=== PATIENT | female | born 1950 | race Caucasian/White ===

== ENCOUNTER 2017-01-13 19:56 | Emergency (ER) | payer MEDICARE, OTHER ==
--- NOTE | 2017-01-13 22:47 | RAD ---
TWO VIEWS OF THE LEFT HUMERUS 01/13/17 HISTORY: Patient fell off stool onto left shoulder. Injury after a fall. FINDINGS: There is an oblique fracture involving the proximal left humeral diaphysis with very slight apex med ial angulation and separation of the fracture fragments. No additional fracture is seen, and there i s no dislocation. There is osteopenia. Vascular calcifications seen in an ectatic thoracic aorta. IMPRESSION: 1. Slightly and angulated fracture involving the proximal left humeral diaphysis. 2. Osteopenia. POS: [facility]
--- NOTE | 2017-01-13 22:48 | RAD ---
TWO VIEWS OF THE LEFT ELBOW 01/13/17 HISTORY: Injury to left elbow. FINDINGS: True AP projection was not obtained as the elbow is slightly flexed on the AP projection which does limit evaluation. However, no definite fracture is seen, and there is no evidence of a dislocation. There is osteopenia. IMPRESSION: Osteopenia without acute fracture visualized. POS: [facility]
--- NOTE | 2017-01-13 22:53 | RAD ---
THREE VIEWS OF THE LEFT SHOULDER 01/13/2017 HISTORY: Injury after falling off a stool. FINDINGS: There is an oblique and slightly fracture involving the proximal left humeral diaphysis. No additional fracture is seen, and there is no dislocation. There is slight apex medial angulation fracture fragments. Diffuse osteopenia is present. Vascular calcification seen in the thoracic ao rta. IMPRESSION: 1. Obliquely oriented and slightly fracture involving the proximal left humeral diaphysis. 2. Osteopenia. POS: [facility]
== END 2017-01-13 21:05 | disposition home or self-care (01) ==
LOC: NAV ERS 19:56
DX: S42.332A Displaced oblique fracture of shaft of humerus, left arm, initial encounter for closed fracture (principal); S51.012A Laceration without foreign body of left elbow, initial encounter; I10 Essential (primary) hypertension; W08.XXXA Fall from other furniture, initial encounter; Z79.899 Other long term (current) drug therapy; Z79.82 Long term (current) use of aspirin

== ENCOUNTER 2017-05-17 12:25 | Outpatient (CLI) | payer MEDICARE, OTHER ==
[2017-05-17 15:09] LABS: ALT (SGPT) 10 U/L (8-55); AST (SGOT) 22 U/L (5-34); Albumin 3.7 g/dL (3.4-4.8); Alkaline Phosphatase 143 U/L (40-150); Anion Gap 15 mmol/L (10-20); BUN (Urea Nitrogen) 14 mg/dL (9.8-20.1); Bilirubin, Total 0.8 mg/dL (0.2-1.2); Calc. Creatinine Clearance 0 mL/min (70-130); Calcium 9.6 mg/dL (7.8-10.44); Carbon Dioxide 27 mmol/L (23-31); Cardiac Risk 3.4 (Less than 4.5); Chloride 98 mmol/L (98-107); Cholesterol 137 mg/dl (< 200 Desired); Estimated GFR-MDRD 54; Glucose 92 mg/dL (80-115); HDL Cholesterol 40 mg/dL (>60 Neg Risk); LDL Cholesterol, Calculated 74 mg/dL; Potassium 4.3 mmol/L (3.5-5.1); Protein, Total 7.7 g/dL (6.0-8.3); Sodium 136 mmol/L (136-145); Triglycerides 116 mg/dL (Less than 150)
[2017-05-17 20:41] LABS: #Basophils 0.1 thou/uL (0.0-0.2); #Eosinphils 0.2 thou/uL (0.0-0.7); #Lymphocytes 2.5 thou/uL (1.20-3.40); #Monocytes 0.7 thou/uL (0.11-0.59); #Neutrophils 6.9 thou/uL (1.40-6.50); %Basophils 1.1 % (0.0-1.0); %Eosinophils 1.8 % (0.0-10.0); %Lymphocytes 23.7 % (21.0-51.0); %Monocytes 6.3 % (0.0-10.0); %Neutrophils 67.1 % (42.0-75.0); Hemoglobin 15.3 g/dL (12.0-16.0); MDiff Complete? YES; Macrocytosis SLIGHT = 6-15 cells (100X) (0-5/hpf); Mean Corpuscular HGB CONC 32.7 g/dL (32.0-36.0); Mean Corpuscular Hemoglobin 35.7 pg (27.0-31.0); Mean Platelet Volume 6.7 fL (7.4-10.4); PLT Morphology Comment Appears Adequate; Platelet Count 176 thou/uL (130-400); RBC Distribution Width 13.6 % (11.5-14.5); Red Blood Cell (RBC) Count 4.29 mill/uL (4.20-5.40); White Blood Cell (WBC) Count 10.3 thou/uL (4.8-10.8)
== END 2017-05-17 12:26 | disposition home or self-care (01) ==
LOC: NAVSJIPCSP 12:25
PROVIDERS: ATTEND Internal Medicine
DX: I10 Essential (primary) hypertension (principal)
CPT/HCPCS: 36415; 80053; 80061; 84443; 85025

== ENCOUNTER 2017-09-16 13:18 | Emergency (ER) | payer MEDICARE, OTHER ==
[2017-09-16] MEDS ORDERED: methylPREDNISolone Acetate 40 mg/ml Vial ONE (14:28)
[2017-09-16] MEDS ORDERED: cefTRIAXone\\ROCEPHIN 1 GM VIAL ONE (15:02)
[2017-09-16] MEDS ORDERED: Lidocaine 1% 20 ML MDV ONE (15:02)
--- NOTE | 2017-09-16 15:41 | RAD ---
TWO VIEWS CHEST 09/16/17 HISTORY: Cough. PA and lateral views of the chest is obtained. The lungs are well aerated. No evidence of active intr athoracic disease seen. No evidence of effusions, pneumonia, or pneumothorax seen. IMPRESSION: Normal two views chest. POS: [facility]
== END 2017-09-16 15:23 | disposition home or self-care (01) ==
LOC: NAV ERS 13:18
DX: J20.9 Acute bronchitis, unspecified (principal); J06.9 Acute upper respiratory infection, unspecified; I10 Essential (primary) hypertension; J44.9 Chronic obstructive pulmonary disease, unspecified; F17.210 Nicotine dependence, cigarettes, uncomplicated; Z79.899 Other long term (current) drug therapy; Z79.82 Long term (current) use of aspirin
CPT/HCPCS: 71020; 96372; J0696; J1030; J2001

== ENCOUNTER 2018-07-05 13:55 | Outpatient (CLI) | payer MEDICARE | END 2018-07-05 13:56 | disposition home or self-care (01) | LOC: NAV ULT 13:55 | PROVIDERS: ATTEND Internal Medicine | DX: I10 Essential (primary) hypertension (principal); R60.9 Edema, unspecified; I08.3 Combined rheumatic disorders of mitral, aortic and tricuspid valves | CPT/HCPCS: 93306 ==

== ENCOUNTER 2018-10-31 08:37 | Outpatient (CLI) | payer MEDICARE ==
[2018-10-31 09:07] LABS: ALT (SGPT) 13 U/L (8-55); AST (SGOT) 28 U/L (5-34); Albumin 3.8 g/dL (3.4-4.8); Alkaline Phosphatase 131 U/L (40-150); Anion Gap 13 mmol/L (10-20); BUN (Urea Nitrogen) 27 mg/dL (9.8-20.1); Bilirubin, Total 0.5 mg/dL (0.2-1.2); Calc. Creatinine Clearance 0 mL/min (70-130); Calcium 9.8 mg/dL (7.8-10.44); Carbon Dioxide 23 mmol/L (23-31); Chloride 98 mmol/L (98-107); Estimated GFR-MDRD 21; Globulin 3.9 g/dL (2.4-3.5); Glucose 91 mg/dL (80-115); Potassium 4.2 mmol/L (3.5-5.1); Protein, Total 7.7 g/dL (6.0-8.3); Sodium 130 mmol/L (136-145)
--- NOTE | 2018-10-31 10:27 | CT ---
CT OF THE CHEST WITHOUT CONTRAST CT OF THE ABDOMEN AND PELVIS WITHOUT CONTRAST: History: Unexplained recent weight loss. Renal dysfunction. Technique: 1. Multiple contiguous axial images were obtained in a CT of the chest without contrast. Coronal refo rmats were performed. 2. Multiple contiguous axial images were obtained in a CT of the abdomen and pelvis without contrast. PO contrast was administered. Coronal reformats were performed. FINDINGS: CT CHEST: A calcified granuloma is seen in the superior aspect of the right lower lobe. No other pulmonary nodu les are seen. No pneumothorax or pleural effusions are seen. No focal infiltrates are seen. The heart is normal in size. Calcifications are seen in the coronary arteries and aorta. No hilar or mediastinal lymphadenopathy are appreciated on this limited noncontrast examination. The chest wall soft tissues are unremarkable. Degenerative changes are seen in the thoracic spine. CT ABDOMEN/PELVIS: There is a 1.2 cm hypodensity in the left kidney which likely represents a small cyst. The liver, gal lbladder, right kidney, adrenal glands, spleen, and pancreas are unremarkable. No free air, free flui d, or stranding changes are seen in the abdomen or pelvis. There are scattered diverticula in the colon. The reproductive organs are unremarkable. The small bow el is unremarkable. There is air in the urinary bladder. No abdominal or pelvic lymphadenopathy are seen. Degenerative ch anges are seen in the spine. Abdominal wall soft tissues are unremarkable. IMPRESSION: 1. Likely small left renal cyst. 2. Air in the urinary bladder may be from recent instrumentation. Alternatively, this could represent cystitis. Correlate with history of recent instrumentation. 3. No evidence of acute intrathoracic abnormality. 4. Diverticulosis. POS: [facility]
== END 2018-10-31 08:38 | disposition home or self-care (01) ==
LOC: NAV CT 08:37
PROVIDERS: ATTEND Internal Medicine
DX: Z01.812 Encounter for preprocedural laboratory examination (principal); R63.4 Abnormal weight loss; K57.90 Diverticulosis of intestine, part unspecified, without perforation or abscess without bleeding
CPT/HCPCS: 71250; 74177; 80053

== ENCOUNTER 2018-11-27 10:27 | Emergency (ER) | payer MEDICARE ==
[2018-11-27] MEDS ORDERED: Sodium Chloride 0.9% 1,000 ML ONE ×3 (11:21→16:17)
[2018-11-27] MEDS ORDERED: Ondansetron PF 4 MG/2 ML Vial ONE ×3 (11:21→16:17)
[2018-11-27 11:33] LABS: ALT (SGPT) 13 U/L (8-55); AST (SGOT) 36 U/L (5-34); Albumin 4.3 g/dL (3.4-4.8); Alkaline Phosphatase 148 U/L (40-150); Anion Gap 22 mmol/L (10-20); BUN (Urea Nitrogen) 27 mg/dL (9.8-20.1); CK (CPK) 27 U/L (29-168); Calc. Creatinine Clearance 0 mL/min (70-130); Calcium 10.1 mg/dL (7.8-10.44); Carbon Dioxide 17 mmol/L (23-31); Chloride 102 mmol/L (98-107); Estimated GFR-MDRD 22; Globulin 4.4 g/dL (2.4-3.5); Glucose 192 mg/dL (80-115); Lipase 68 U/L (8-78); Potassium 4.2 mmol/L (3.5-5.1); Protein, Total 8.7 g/dL (6.0-8.3); Sodium 137 mmol/L (136-145)
[2018-11-27 11:52] LABS: #Lymphocytes 0.8 thou/uL (1.20-3.40); #Monocytes 0.5 thou/uL (0.11-0.59); #Neutrophils 12.6 thou/uL (1.40-6.50); %Basophils 0.3 % (0.0-1.0); %Monocytes 3.4 % (0.0-10.0); %Neutrophils 90.3 % (42.0-75.0); Hemoglobin 17.4 g/dL (12.0-16.0); MDiff Complete? YES; Macrocytosis SLIGHT = 6-15 cells (100X) (0-5/hpf); Mean Corpuscular HGB CONC 32.2 g/dL (32.0-36.0); Mean Corpuscular Hemoglobin 34.9 pg (27.0-31.0); Platelet Count 182 thou/uL (130-400); Platelet Morphology Comment Appears Adequate; RBC Distribution Width 14.7 % (11.5-14.5); Red Blood Cell (RBC) Count 4.99 mill/uL (4.20-5.40)
[2018-11-27] MEDS ORDERED: Metoprolol Tartrate 5 MG/5 ML VIAL ONE ×2 (11:59→12:27)
--- NOTE | 2018-11-27 12:15 | RAD ---
ABDOMEN 2 VIEWS WITH A 1 VIEW CHEST XRAY: HISTORY: Nausea and vomiting. COMPARISON: None. FINDINGS: Radiograph of the chest is clear. No pneumothorax. No effusion. Mild calcifications transverse aor ta. No free air under the hemidiaphragms. No abnormal calcifications projecting over the renal shadows. Numerous phleboliths in the pelvis. There loculations and calcifications within the sigmoid diverti cula. Moderate vascular calcifications. IMPRESSION: No acute abnormality within the abdomen. Clear chest. POS: [facility]
[2018-11-27 14:38] LABS: Bilirubin Negative (Negative); Blood, Urine Moderate (Negative); Clarity Hazy (Clear); Glucose, Urine (Dipstick) Negative (Negative); Leukocyte Trace (Negative); Nitrite Negative (Negative); Protein, Urine (Dipstick) > or equal to 300 mg/dL (Neg-Trace); Specific Gravity, Urine 1.025 (1.005-1.030); Urobilinogen 0.2 mg/dL (0.2-1.0); pH, Urine 6.5 (5.0-9.0)
[2018-11-27] MEDS ORDERED: Fleet Enema 133 ML BOT ONE (14:42)
[2018-11-27 14:53] LABS: Bacteria/HPF 4+ HPF (None Seen); RBC/HPF 0-3 HPF (0-3); Squamous Epithelial 0-3 HPF (0-3)
[2018-11-27 15:08] LABS: Lactic Acid 2.1 mmol/L (0.5-2.2)
[2018-11-27] MEDS ORDERED: Sodium Chloride 0.9% 250 ML 250 ML ONE (15:14)
[2018-11-27] MEDS ORDERED: Sodium Chloride 0.9% 100 ML ONE (15:14)
[2018-11-27] MEDS ORDERED: cefTRIAXone\\ROCEPHIN 2 GM VIAL ONE (15:14)
--- NOTE | 2018-11-27 15:18 | CT ---
CT ABDOMEN AND PELVIS WITHOUT CONTRAST: HISTORY: Nausea and vomiting. COMPARISON: Chest, abdomen, and pelvis CT 10/31/2018. FINDINGS: There is mild scarring within the lingula. No significant pericardial effusion. There are small right pericardiophrenic lymph nodes, similar to the comparison examination. The hepa tic contour is nodular. There is gas throughout the right renal collecting system in the right proxi mal ureter as well as throughout the distal ureter. There is gas within the urinary bladder. There is extensive edema surrounding the rectum in the mesorectal fat. Moderate diverticular disease sigmoid colon without active current inflammation. There is no significant gas within the left renal collecting system nor the left ureter. There is a nodule of the lateral limb left adrenal gland, likely an adenoma giving Hounsfield units of 11. The contour is nonaneurysmal. The craniad aspect of the urinary bladder wall of the soft tissue nodu le measuring 1.3 cm in size which may reflect a urachal remnant. Small volume gas within the vaginal vault. IMPRESSION: 1. 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 No defin ite fistula is seen between the urinary bladder and the colon nor the vagina, although limited on thi s noncontrast examination. 2. Extensive new inflammatory change around the rectum and throughout the mesorectal fascia with sub mucosal edema suggesting active proctitis. POS: [facility]
== END 2018-11-27 17:29 | disposition home or self-care (01) ==
LOC: NAV ERS 10:27
DX: A41.9 Sepsis, unspecified organism (principal); R11.2 Nausea with vomiting, unspecified; N39.0 Urinary tract infection, site not specified; I10 Essential (primary) hypertension; E87.6 Hypokalemia; F17.210 Nicotine dependence, cigarettes, uncomplicated; Z79.899 Other long term (current) drug therapy
CPT/HCPCS: 74022; 74176; 80053; 81003; 81015; 82550; 83605; 83690; 84484; 85025; 87040; 87077; 87086; 87186; 93005; 96361; 96365; 96366; 96367; 96375; J0696; J2405; J3370; J7050

== ENCOUNTER 2018-12-17 09:42 | Outpatient (CLI) | payer MEDICARE ==
--- NOTE | 2018-12-17 13:15 | ULT ---
BILATERAL RENAL ULTRASOUND COMPLETE: HISTORY: Chronic kidney disease. COMPARISON: CT 11/30/2018. FINDINGS: The right kidney measures 9.4 x 3.9 x 4.7 cm and shows renal cortical increased echogenicity, evidenc e for nonspecific chronic renal disease. The left kidney measures 10.1 x 5.4 x 4.3 cm. No evidence for right renal solid or cystic mass. The small nodular density seen in the upper pole of the right kidney is not demonstrated on ultrasound, so cannot be further characterized. At least 2 small cysts of the left kidney without renal hydronephrosis. Borderline size spleen. Urinary bladder is unrema rkable. Right ureteral jet was poorly demonstrated. There is a somewhat poorly defined 1.2 x 1.4 x 1.7 cm diameter low echogenic focus off the anterior superior bladder. Conceivably, this could repre sent a bladder diverticulum or a mass adjacent to the bladder. Depending on concern, followup cystos copy should be considered. IMPRESSION: Several small left renal cysts. Small nodular focus of the right kidney is not definitely demonstrat ed on this ultrasound study and cannot be further characterized. A somewhat hypoechoic nodular focus off the anterior superior bladder. Possibilities include that of a small bladder diverticulum versu s some type of bladder mass or mass immediately adjacent to the bladder not accurately characterized on this study. Consider followup cystoscopy for further evaluation. Somewhat hyperechoic renal jazmin ices bilaterally, evidence for nonspecific bilateral chronic renal disease. Other findings as above. POS: [facility]
== END 2018-12-17 09:43 | disposition home or self-care (01) ==
LOC: NAV ULT 09:42
PROVIDERS: ATTEND Internal Medicine
DX: N18.3 Chronic kidney disease, stage 3 (moderate) (principal); N28.1 Cyst of kidney, acquired; R93.421 Abnormal radiologic findings on diagnostic imaging of right kidney
CPT/HCPCS: 76770

== ENCOUNTER 2019-10-18 15:08 | Emergency (ER) | payer MEDICARE ==
--- NOTE | 2019-10-18 15:47 | RAD ---
EXAM: Chest 2 views: HISTORY: Dyspnea COMPARISON: 09/16/2017 FINDINGS: There is an enlarged cardiomediastinal silhouette. There is a moderate left pleural effusion with ad jacent atelectasis. The bones are unremarkable. IMPRESSION: Moderate left pleural effusion
[2019-10-18 15:56] LABS: #Eosinphils 0.2 thou/uL (0.0-0.7); #Lymphocytes 0.9 thou/uL (1.20-3.40); #Monocytes 0.3 thou/uL (0.11-0.59); #Neutrophils 4.7 thou/uL (1.40-6.50); %Basophils 0.7 % (0.0-1.0); %Eosinophils 3.2 % (0.0-10.0); %Lymphocytes 14.7 % (21.0-51.0); %Monocytes 5.4 % (0.0-10.0); Hemoglobin 9.3 g/dL (12.0-16.0); Mean Corpuscular HGB CONC 30.9 g/dL (32.0-36.0); Mean Corpuscular Hemoglobin 33.5 pg (27.0-31.0); Mean Platelet Volume 6.9 fL (7.4-10.4); Platelet Count 135 thou/uL (130-400); RBC Distribution Width 17.5 % (11.5-14.5); Red Blood Cell (RBC) Count 2.78 mill/uL (4.20-5.40); White Blood Cell (WBC) Count 6.2 thou/uL (4.8-10.8)
[2019-10-18 16:10] LABS: ALT (SGPT) 15 U/L (8-55); AST (SGOT) 30 U/L (5-34); Albumin 3.5 g/dL (3.4-4.8); Alkaline Phosphatase 134 U/L (40-110); Anion Gap 16 mmol/L (10-20); BUN (Urea Nitrogen) 35 mg/dL (9.8-20.1); Bilirubin, Total 0.4 mg/dL (0.2-1.2); Calc. Creatinine Clearance 0 mL/min (70-130); Calcium 8.3 mg/dL (7.8-10.44); Carbon Dioxide 13 mmol/L (23-31); Chloride 110 mmol/L (98-107); Estimated GFR-MDRD 8; Globulin 3.1 g/dL (2.4-3.5); Glucose 90 mg/dL (80-115); Magnesium 1.5 mg/dL (1.6-2.6); Potassium 4.2 mmol/L (3.5-5.1); Protein, Total 6.6 g/dL (6.0-8.3); Sodium 135 mmol/L (136-145)
[2019-10-18] MEDS ORDERED: Furosemide 40 MG/4 ML VIAL ONE (16:42)
[2019-10-18] MEDS ORDERED: Magnesium 2 GM/50 ML BAG (IN WATER) ONE (16:43)
[2019-10-18 17:35] LABS: Bilirubin Negative (Negative); Blood, Urine Small (Negative); Clarity Clear (Clear); Glucose, Urine (Dipstick) Negative (Negative); Leukocyte Moderate (Negative); Nitrite Negative (Negative); Protein, Urine (Dipstick) > or equal to 300 mg/dL (Neg-Trace); Urobilinogen 0.2 mg/dL (Less than 2)
[2019-10-18 17:51] LABS: Bacteria/HPF 2+ HPF (None Seen); RBC/HPF None Seen HPF (0-3); Squamous Epithelial None Seen HPF (0-3); WBC/HPF 0-3 HPF (0-3)
== END 2019-10-18 17:30 | disposition short-term general hospital (02) ==
LOC: NAV ERS 15:08
DX: J90 Pleural effusion, not elsewhere classified (principal); N17.9 Acute kidney failure, unspecified; I13.0 Hypertensive heart and chronic kidney disease with heart failure and stage 1 through stage 4 chronic kidney disease, or unspecified chronic kidney disease; I50.9 Heart failure, unspecified; N18.9 Chronic kidney disease, unspecified; E87.6 Hypokalemia; E83.42 Hypomagnesemia; R94.31 Abnormal electrocardiogram [ECG] [EKG]; F17.210 Nicotine dependence, cigarettes, uncomplicated; Z79.82 Long term (current) use of aspirin; Z79.899 Other long term (current) drug therapy; Z79.891 Long term (current) use of opiate analgesic
CPT/HCPCS: 71046; 80053; 81003; 81015; 83735; 83880; 84484; 85025; 93005; 94760; 96365; 96375; J1940; J3475

== ENCOUNTER 2020-01-14 14:28 | Emergency (ER) | payer MEDICARE ==
[2020-01-14 15:10] LABS: #Eosinphils 0.1 thou/uL (0.0-0.7); #Lymphocytes 1.1 thou/uL (1.20-3.40); #Monocytes 0.4 thou/uL (0.11-0.59); #Neutrophils 4.9 thou/uL (1.40-6.50); %Basophils 0.6 % (0.0-1.0); %Eosinophils 0.9 % (0.0-10.0); %Lymphocytes 16.9 % (21.0-51.0); %Neutrophils 75.6 % (42.0-75.0); Hemoglobin 10.4 g/dL (12.0-16.0); Mean Corpuscular HGB CONC 30.7 g/dL (32.0-36.0); Mean Corpuscular Hemoglobin 31.2 pg (27.0-31.0); Mean Platelet Volume 6.7 fL (7.4-10.4); Platelet Count 133 thou/uL (130-400); RBC Distribution Width 15.9 % (11.5-14.5); Red Blood Cell (RBC) Count 3.34 mill/uL (4.20-5.40); White Blood Cell (WBC) Count 6.5 thou/uL (4.8-10.8)
[2020-01-14] MEDS ORDERED: Sodium Chloride 0.9% 500 ML ONE (15:13)
[2020-01-14] MEDS ORDERED: Ondansetron PF 4 MG/2 ML Vial ONE (15:13)
[2020-01-14 15:29] LABS: ALT (SGPT) 29 U/L (8-55); AST (SGOT) 72 U/L (5-34); Albumin 2.6 g/dL (3.4-4.8); Alkaline Phosphatase 281 U/L (40-110); Anion Gap 15 mmol/L (10-20); BUN (Urea Nitrogen) 14 mg/dL (9.8-20.1); Bilirubin, Total 0.4 mg/dL (0.2-1.2); Calc. Creatinine Clearance 0 mL/min (70-130); Calcium 7.9 mg/dL (7.8-10.44); Carbon Dioxide 26 mmol/L (23-31); Chloride 98 mmol/L (98-107); Estimated GFR-MDRD 16; Globulin 3.5 g/dL (2.4-3.5); Glucose 132 mg/dL (80-115); Lipase 9 U/L (8-78); Potassium 4.7 mmol/L (3.5-5.1); Protein, Total 6.1 g/dL (6.0-8.3); Sodium 134 mmol/L (136-145)
[2020-01-14 15:45] LABS: CKMB 1.7 ng/mL (0-6.6)
[2020-01-14] MEDS ORDERED: Aspirin Chewable 81 MG TAB ONE (16:29)
--- NOTE | 2020-01-14 16:43 | RAD ---
PORTABLE CHEST ONE VIEW: 01/14/20 at 4:23 p.m. HISTORY: Nausea, vomiting. Patient on dialysis COMPARISON: 11/26/19. There has been interval improvement in the size of the left pleural effusion since the previous study with an interval decrease in size of the left pleural effusion. Right sided dialysis catheter remain s in place. The heart size is stable. No lobar consolidation, pneumothoraces, radha pulmonary edema or large right sided pleural effusion are seen. There is a healed fracture of the left proximal humer us. IMPRESSION: Interval improvement without complete resolution of the left pleural effusion since 11/26/19. POS: [facility]
== END 2020-01-14 17:29 | disposition home or self-care (01) ==
LOC: NAV ERS 14:28
DX: K52.9 Noninfective gastroenteritis and colitis, unspecified (principal); R79.89 Other specified abnormal findings of blood chemistry; R18.8 Other ascites; I12.0 Hypertensive chronic kidney disease with stage 5 chronic kidney disease or end stage renal disease; N18.6 End stage renal disease; R74.0 Nonspecific elevation of levels of transaminase and lactic acid dehydrogenase [LDH]; J90 Pleural effusion, not elsewhere classified; R11.2 Nausea with vomiting, unspecified; E46 Unspecified protein-calorie malnutrition; E87.6 Hypokalemia; Z99.2 Dependence on renal dialysis; Z87.891 Personal history of nicotine dependence; Z79.82 Long term (current) use of aspirin; Z79.891 Long term (current) use of opiate analgesic; Z79.899 Other long term (current) drug therapy
CPT/HCPCS: 71045; 80053; 82553; 83605; 83690; 84484; 85025; 93005; 94760; 96361; 96374; 99285; J2405; J7030

== ENCOUNTER 2020-02-01 19:25 | Emergency (ER) | payer MEDICARE ==
[2020-02-01 20:03] LABS: #Basophils 0.1 thou/uL (0.0-0.2); #Eosinphils 0.1 thou/uL (0.0-0.7); #Lymphocytes 1.5 thou/uL (1.20-3.40); #Monocytes 0.5 thou/uL (0.11-0.59); #Neutrophils 5.9 thou/uL (1.40-6.50); %Basophils 1.1 % (0.0-1.0); %Eosinophils 1.7 % (0.0-10.0); %Lymphocytes 18.7 % (21.0-51.0); %Monocytes 5.6 % (0.0-10.0); Hemoglobin 10.4 g/dL (12.0-16.0); Mean Corpuscular HGB CONC 30.4 g/dL (32.0-36.0); Mean Corpuscular Hemoglobin 31.1 pg (27.0-31.0); Platelet Count 209 thou/uL (130-400); RBC Distribution Width 14.7 % (11.5-14.5); Red Blood Cell (RBC) Count 3.34 mill/uL (4.20-5.40)
[2020-02-01 20:17] LABS: ALT (SGPT) 39 U/L (8-55); AST (SGOT) 86 U/L (5-34); Albumin 2.4 g/dL (3.4-4.8); Alkaline Phosphatase 348 U/L (40-110); Anion Gap 15 mmol/L (10-20); BUN (Urea Nitrogen) 8 mg/dL (9.8-20.1); Bilirubin, Total 0.3 mg/dL (0.2-1.2); CK (CPK) 30 U/L (29-168); Calc. Creatinine Clearance 0 mL/min (70-130); Calcium 7.8 mg/dL (7.8-10.44); Carbon Dioxide 25 mmol/L (23-31); Chloride 99 mmol/L (98-107); Estimated GFR-MDRD 21; Globulin 3.3 g/dL (2.4-3.5); Glucose 125 mg/dL (80-115); Potassium 4.1 mmol/L (3.5-5.1); Protein, Total 5.7 g/dL (6.0-8.3); Sodium 135 mmol/L (136-145)
--- NOTE | 2020-02-01 20:27 | RAD ---
Chest one view HISTORY: Dyspnea. Cough. COMPARISON: 01/14/2020. FINDINGS: Cardiac silhouette is magnified and partially obscured by left pleural fluid that is simila r in appearance to the previous study. Slight leftward shift of the mediastinum is stable. No evidence of pneumothorax. Right lung is well-inflated. There is calcification in the aorta. Right internal jugular central venous catheter is in place. Old left humeral neck fracture. IMPRESSION : Left pleural fluid and basilar atelectasis and other findings are stable. Atherosclerosis.
== END 2020-02-01 21:30 | disposition home or self-care (01) ==
LOC: NAV ERS 19:25
DX: I12.0 Hypertensive chronic kidney disease with stage 5 chronic kidney disease or end stage renal disease (principal); N18.6 End stage renal disease; E87.70 Fluid overload, unspecified; M62.81 Muscle weakness (generalized); Z99.2 Dependence on renal dialysis; Z79.82 Long term (current) use of aspirin; Z79.01 Long term (current) use of anticoagulants; Z79.899 Other long term (current) drug therapy; Z87.891 Personal history of nicotine dependence
CPT/HCPCS: 71045; 80053; 82550; 83880; 84484; 85025; 87804; 93005

== ENCOUNTER 2020-03-06 18:00 | Emergency (ER) | payer MEDICARE ==
[~2020-03-06 18:00] MED LIST: Atropine Sulfate 1 mg/10 ml Syringe ONE; Dextrose 50% Abboject 50 ML SYRINGE ONE; EPINEPHrine 1 MG/10 ML Abboject SYRINGE ONE; Sodium Bicarb 50 MEQ/50 ML Abboject 8.4% SYRINGE ONE
[2020-03-06] MEDS ORDERED: Propofol 1,000 MG/100 ML VIAL IV ONE ×2 (18:17→18:47)
[2020-03-06] MEDS ORDERED: PROPOFOL 20 ML ONE (18:18)
[2020-03-06 18:26] LABS: #Lymphocytes 1.9 thou/uL (1.20-3.40); #Monocytes 0.3 thou/uL (0.11-0.59); #Neutrophils 5.6 thou/uL (1.40-6.50); %Basophils 0.3 % (0.0-1.0); %Eosinophils 0.1 % (0.0-10.0); %Lymphocytes 23.9 % (21.0-51.0); %Monocytes 4.1 % (0.0-10.0); %Neutrophils 71.6 % (42.0-75.0); Hemoglobin 11.3 g/dL (12.0-16.0); Mean Corpuscular HGB CONC 28.1 g/dL (32.0-36.0); Mean Corpuscular Hemoglobin 29.6 pg (27.0-31.0); Mean Platelet Volume 6.9 fL (7.4-10.4); Platelet Count 138 thou/uL (130-400); White Blood Cell (WBC) Count 7.8 thou/uL (4.8-10.8)
[2020-03-06 18:30] LABS: INR-International Normal Ratio 1.4
[2020-03-06 18:31] LABS: PTT 40.7 sec (22.9-36.1)
[2020-03-06 18:35] LABS: Hypochromia SLIGHT = 6-15 cells (100X) (0-5/hpf); MDiff Complete? YES; Macrocytosis SLIGHT = 6-15 cells (100X) (0-5/hpf); Platelet Morphology Comment Appears Adequate
[2020-03-06 18:39] LABS: ALT (SGPT) 198 U/L (8-55); AST (SGOT) 705 U/L (5-34); Albumin 1.8 g/dL (3.4-4.8); Alkaline Phosphatase 316 U/L (40-110); Anion Gap 22 mmol/L (10-20); BUN (Urea Nitrogen) 30 mg/dL (9.8-20.1); Bilirubin, Total 0.8 mg/dL (0.2-1.2); Calc. Creatinine Clearance 0 mL/min (70-130); Calcium 7.6 mg/dL (7.8-10.44); Carbon Dioxide 15 mmol/L (23-31); Chloride 100 mmol/L (98-107); Estimated GFR-MDRD 11; Glucose 65 mg/dL (83-110); Potassium 4.8 mmol/L (3.5-5.1); Protein, Total 4.8 g/dL (6.0-8.3); Sodium 132 mmol/L (136-145)
[2020-03-06 18:40] LABS: CKMB 2.3 ng/mL (0-6.6); Troponin I 0.027 ng/mL (< 0.028)
--- NOTE | 2020-03-06 20:11 | RAD ---
EXAM: CHEST ONE VIEW: 03/06/20 COMPARISON: 02/07/20. HISTORY: CPR in progress. FINDINGS: Right sided Hemosplit dialysis catheter terminates over the region of the right atrium. Endotracheal tube appears to have the distal tip in the right main stem bronchus. There appears to be left sided pleural effusion. Limited evaluation of the right lung due to overlying CPR/defibrillator paddles. No pneumothorax on this supine projection. IMPRESSION: 1. Endotracheal tube in the right main stem bronchus. 2. Left sided pleural effusion. 3. Results of the study discussed with Dr. Mcfadden 03/06/20 at 6:47 p.m. Code CR POS: [facility]
== END 2020-03-06 19:17 | disposition short-term general hospital (02) ==
LOC: NAV ERS 18:00
DX: I46.9 Cardiac arrest, cause unspecified (principal); E87.2 Acidosis; I49.9 Cardiac arrhythmia, unspecified; I48.91 Unspecified atrial fibrillation; I12.0 Hypertensive chronic kidney disease with stage 5 chronic kidney disease or end stage renal disease; N18.6 End stage renal disease; E16.2 Hypoglycemia, unspecified; Z79.82 Long term (current) use of aspirin; Z87.891 Personal history of nicotine dependence; Z79.01 Long term (current) use of anticoagulants; Z79.899 Other long term (current) drug therapy
CPT/HCPCS: 31500; 36415; 71045; 80053; 82553; 83880; 84484; 85025; 85610; 85730; 93005; 94760; 96374; 96375; 96376; J0171; J0461; J2704